=== PATIENT | female | born 1965 | race Caucasian/White ===

== ENCOUNTER 2021-03-11 19:24 | Emergency (ER) | payer OTHER ==
--- NOTE | 2021-03-11 19:50 | EDM.PDOC ---
ED HPI GENERAL MEDICAL PROBLEM - General Chief Complaint: General Stated Complaint: BL IN URINE Time Seen by Provider: 03/11/21 19:40 Source of Information: Reports: Patient History Limitations: Reports: No Limitations - History of Present Illness INITIAL COMMENTS - FREE TEXT/NARRATIVE: Patient comes into the emergency department with complaint of hematuria. Patient states that she started having burning, frequency, hesitancy, and blood in her urine approximately 24 hours ago. She states that is slowly been progressing throughout the night and the day. She states that this last time she utilized the bathroom she had noticed it was mainly blood. She states that the frequency and burning as intense when she tries to urinate. She denies any flank pain abdominal pain, nausea, vomiting, fever, genitourinary concerns of discharge, STDs, or peripheral edema. Onset: Gradual Duration: Other Quality: Reports: Ache, Burning Severity: Moderate Improves with: Reports: None Worsens with: Reports: None Associated Symptoms: Reports: No Other Symptoms - Related Data Home Meds: Home Meds Sulfamethoxazole/Trimethoprim [Bactrim Ds Tablet] 1 each PO BID 5 Days #10 tablet 03/11/21 [Rx] ED ROS GENERAL - Review of Systems Review Of Systems: Comprehensive ROS is negative, except as noted in HPI. Constitutional: Reports: No Symptoms HEENT: Reports: No Symptoms Respiratory: Reports: No Symptoms Cardiovascular: Reports: No Symptoms Endocrine: Reports: No Symptoms GI/Abdominal: Reports: No Symptoms : Reports: Dysuria, Frequency, Hematuria, Urgency, Urinary Retention Musculoskeletal: Reports: No Symptoms Skin: Reports: No Symptoms Neurological: Reports: No Symptoms Psychiatric: Reports: No Symptoms Hematologic/Lymphatic: Reports: No Symptoms Immunologic: Reports: No Symptoms ED EXAM, GENERAL - Physical Exam Exam: See Below Exam Limited By: No Limitations General Appearance: Alert, WD/WN, No Apparent Distress Head: Atraumatic, Normocephalic Cardiovascular: Regular Rate, Rhythm, No Edema GI/Abdominal: Normal Bowel Sounds, Soft, Non-Tender, No Organomegaly, No Abnormal Bruit, No Mass Extremities: Normal Inspection, Normal Range of Motion, Non-Tender, Normal Capillary Refill Neurological: Alert, Oriented Psychiatric: Normal Affect, Normal Mood Skin Exam: Warm, Dry, Intact, Normal Color Course - Orders/Labs/Meds Orders: Active Orders 24 hr Category Date Time Status UA RFX NEDRA AND CULT IF INDIC [URIN] Stat Lab 03/11/21 19:43 Ordered Departure - Departure Time of Disposition: 20:15 Disposition: Home, Self-Care 01 Condition: Good Clinical Impression: UTI, Urinary tract infectious disease - Discharge Information *PRESCRIPTION DRUG MONITORING PROGRAM REVIEWED*: Not Applicable *COPY OF PRESCRIPTION DRUG MONITORING REPORT IN PATIENT SEDA: Not Applicable Instructions: Urinary Tract Infection, Adult Referrals: Lo Cerrato MD [Primary Care Provider] - Forms: ED Department Discharge Additional Instructions: 1. rest 2. increase your water intake 3. Take all antibiotics as prescribed even if feeling better 4. Take a probiotic while on antibiotics to help promote healthy GI motility 5. Activity and diet as tolerated 6. Can use Ibuprofen and tylenol for any fever or discomfort 7. Follow up with your PCP or return if symptoms progress or worsen 8. Education provided to you regarding your illness, probiotics, antibiotic prescribed 9. Call with any questions or concerns - My Orders Last 24 Hours: My Active Orders 03/11/21 19:43 UA RFX NEDRA AND CULT IF INDIC [URIN] Stat - Assessment/Plan Last 24 Hours: My Active Orders 03/11/21 19:43 UA RFX NEDRA AND CULT IF INDIC [URIN] Stat Assessment:: 1. UTI Plan: 1. UA/UC 2. Rocephin IM given in ER 3. Bactrim script sent provided 4. Patient and nursing staff was updated regarding the plan of care 5. Education provided the patient regarding activity, diet, rest, [id number] medication modalities, and follow-up care was provided 6. Patient and family are agreeable to the above plan of care 7. All questions and concerns were addressed with the patient and family prior to discharge
[2021-03-11] MEDS: cefTRIAXone 1 GM, Lidocaine 1% 2.1 ML IM ONE ×2 (20:00)
== END 2021-03-11 20:05 | disposition home or self-care (01) ==
LOC: VM.ED 19:24
DX: N39.0 Urinary tract infection, site not specified (principal)
CPT/HCPCS: 81001; 87086; 87088; 87186; 96372; 99283; J0696

== ENCOUNTER 2025-04-16 12:37 | Emergency (ER) | payer BC, OTHER | END 2025-04-16 13:06 | disposition home or self-care (01) | LOC: VM.ED 12:37 | DX: M54.16 Radiculopathy, lumbar region (principal); Z88.2 Allergy status to sulfonamides; Z88.1 Allergy status to other antibiotic agents | CPT/HCPCS: 99283 ==